=== PATIENT | female | born 1945 | race Caucasian/White ===

== ENCOUNTER → 2019-01-17 13:27 | Outpatient (CLI) | payer MEDICARE, MEDICAID, SELFPAY ==
--- NOTE | 2019-01-17 | DI.ECHO.S_ITS ---
[facility]---------+ [facility] +---------+ : : [address] : [place] : : : : [id number] : : : : Phone: [phone] +---------+ Echocardiogram Report + + :Name: WILFREDO BANG Study Date: 01/17/2019 Height: 68 in : :[facility] Weight: 279 lb : : Gender: Female BSA: 2.4 m2 : :: 1945 Age: 73 yrs BP: 168/90 mmHg: :Reason For Study: Cardiomyopathy : :Ordering Physician: Zay : :Emily Performed By: Naye Dickens : :Referring: BRANDON BOTELLO N : + + Interpretation Summary The left ventricle is normal in size. The ejection fraction is estimated to be 60-65%. Diastolic parameters suggest a pseudonormalization pattern, consistent with probable elevated filling pressures. The right ventricle is grossly normal size. The right ventricular systolic function is normal. There is mild tricuspid regurgitation. Compared to the prior echo exam, there has been a decrease in TR severity. The right ventricular systolic pressure is estimated to be at least 35 mmHg based on an estimated right atrial pressure of 3 mm Hg. Compared to the prior echo exam, there has been a decrease in the severity of pulmonary hypertension. Procedure: A two-dimensional transthoracic echocardiogram with color flow and Doppler was performed. The study quality was technically good. Comparison is made with the echocardiogram of 02-08-15. The patient was in normal sinus rhythm during the exam. Left Ventricle: The left ventricle is normal in size. There is normal left ventricular wall thickness. There is no thrombus. The ejection fraction is estimated to be 60-65%. There are no focal wall motion abnormalities. Diastolic parameters suggest a pseudonormalization pattern, consistent with probable elevated filling pressures. Right Ventricle: The right ventricle is grossly normal size. The right ventricular systolic function is normal. Atria: The left atrium is mildly dilated. Right atrial size is normal. The interatrial septum is intact with no evidence for an atrial septal defect. Mitral Valve: There is mild mitral annular calcification. There is mild mitral regurgitation. Compared to the prior echo study, there has been a decrease in the severity of mitral regurgitation. Aortic Valve: The aortic valve opens well. The aortic valve is trileaflet. The aortic valve is slightly calcified. There is no aortic valve stenosis. No aortic regurgitation is present. Tricuspid Valve: The tricuspid valve leaflets are thin and pliable. There is mild tricuspid regurgitation. The right ventricular systolic pressure is estimated to be at least 35 mmHg based on an estimated right atrial pressure of 3 mm Hg. Compared to the prior echo exam, there has been a decrease in TR severity. Compared to the prior echo exam, there has been a decrease in the severity of pulmonary hypertension. Pulmonic Valve: The pulmonic valve is not well seen, but is grossly normal. There is trace pulmonic regurgitation. Great Vessels: The aortic root is normal size. The ascending aorta is at the upper limits of normal in size. The aortic arch is normal in size. The IVC is of normal diameter and collapses greater than 50% with a sniff. This suggests a low right atrial pressure of 3 mm Hg. Pericardium/ Pleura There is no pericardial effusion. There is no pleural effusion. MMode/2D Measurements & Calculations LVIDd: 5.6 cm Ao root diam: 3.6 cm LVIDs: 3.2 cm Aortic Jxn: 2.7 cm FS: 42.3 % asc Aorta Diam: 3.5 cm EPSS: 0.65 cm Ao Arch Diam (Prox Trans): 2.8 cm IVSd: 1.1 cm LVPWd: 0.95 cm LV ghosh. diameter/BSA (cm/m^2): 2.4 LV sys. diameter/BSA (cm/m^2): 1.4 LA dimension: 4.9 cm RA long axis: 4.9 cm LA A2 area: 27.1 cm2 RA area: 19.1 cm2 LA A4 area: 26.3 cm2 RA vol: 62.8 ml LA length (vol): 6.3 cm RA : 26.7 ml/m2 LA vol: 96.8 ml IVC diam: 1.1 cm LA vol index: 41.1 ml/m2 RVD1 (basal): 3.7 cm RVD2 (mid): 3.6 cm Doppler Measurements & Calculations Ao V2 max: 180.5 cm/sec MV E max vasu: 124.4 cm/sec Ao V2 mean: 117.1 cm/sec MV A max vasu: 111.2 cm/sec Ao max P.0 mmHg MV E/A: 1.1 Ao mean P.4 mmHg Med Peak E' Vasu: 7.8 cm/sec Ao V2 VTI: 40.9 cm E/E' med: 16.0 Lat Peak E' Vasu: 8.2 cm/sec E/E' lat: 15.1 E/e' average: 15.6 MV dec time: 0.21 sec MV P1/2t: 64.4 msec TR max vasu: 283.4 cm/sec MV P1/2t max vasu: 125.4 cm/sec TR max P.1 mmHg MVA(P1/2t): 3.4 cm2 PA V2 max: 109.4 cm/sec PA V2 mean: 76.3 cm/sec PA mean P.6 mmHg PA Accel Time: 0.17 sec Reading Physician:REGAN
== END ==
PROVIDERS: PCP Physician Assistant; Visit Provider Nurse Practitioner
DX: I08.1 Rheumatic disorders of both mitral and tricuspid valves (principal); I27.20 Pulmonary hypertension, unspecified; I42.9 Cardiomyopathy, unspecified
CPT/HCPCS: 93306